=== PATIENT | female | born 1975 | race Two or more races ===

== ENCOUNTER 2019-12-17 13:14 | Emergency (ER) | payer BC ==
[~2019-12-17] VITALS: Ht 157.5 cm; Wt 48.6 kg
[2019-12-17] MEDS ORDERED: IV NORMAL SALINE 1000ML BAG 1,000 ML IV SCH (14:11)
[2019-12-17] MEDS ORDERED: ASPIRIN CHEWABLE 81 MG TABLET. PO ONE (14:15)
[2019-12-17] MEDS ORDERED: ASPIRIN 325 MG TABLET ONE (14:18)
--- NOTE | 2019-12-17 14:19 | PHYS DOC ---
Past Medical History Past Medical History: Fibromyalgia, High Cholesterol, Migraines Past Surgical History: No Surgical History Smoking Status: Never Smoker Alcohol Use: None Drug Use: None Adult General Chief Complaint Chief Complaint: CHEST PAIN-NON CARDIAC NATURE HPI HPI Patient is a 44 year old female who presents with complaint of left-sided chest discomfort that started a few days ago. Patient states the pain is sharp and stabbing in nature and states that it is worsened with deep breathing. She states that she regularly does cardio type exercising and has no worsening of symptoms with exercise. She denies any nausea, vomiting or diaphoresis. Patient denies any cough or shortness of breath. She does indicate that pain is slightly reproducible with palpation. Patient has had no fever.[] Review of Systems Review of Systems Constitutional: Denies fever or chills [] Respiratory: Denies cough or shortness of breath [] Cardiovascular: No additional information not addressed in HPI [] GI: Denies abdominal pain, nausea, vomiting or diarrhea [] Neurologic: Denies headache, focal weakness or sensory changes [] All other systems were reviewed and found to be within normal limits, except as documented in this note. Current Medications Current Medications Current Medications Medications (Trade) Dose Ordered Sig/Dionne Start Time Stop Time Status Last Admin Dose Admin Aspirin (Wanda Aspirin) 325 mg STK-MED ONCE 12/17/19 14:18 12/17/19 14:18 DC Aspirin (Children'S Aspirin) 324 mg 1X ONCE 12/17/19 14:15 12/17/19 14:18 DC 12/17/19 14:45 324 MG Magnesium Oxide (Magnesium Oxide) 400 mg DAILY 12/18/19 09:00 UNV Sodium Chloride 1,000 ml @ 1,000 mls/hr Q1H 12/17/19 14:11 12/17/19 15:10 DC 12/17/19 14:15 1,000 MLS/HR Allergies Allergies Allergies Coded Allergies Type Severity Reaction Last Updated Verified No Known Drug Allergies 01/30/14 No Physical Exam Physical Exam Constitutional: Well developed, well nourished, no acute distress, non-toxic appearance. [] HENT: Normocephalic, atraumatic, bilateral external ears normal, oropharynx moist, no oral exudates, nose normal. [] Eyes: PERRLA, EOMI, conjunctiva normal, no discharge. [] Neck: Normal range of motion, no tenderness, supple. [] Cardiovascular: Regular rate and rhythm[] Lungs & Thorax: Bilateral breath sounds clear to auscultation [] Abdomen: Bowel sounds normal, soft, no tenderness. [] Skin: Warm, dry, no erythema, no rash. [] Extremities: No tenderness, no cyanosis, no clubbing, ROM intact, no edema. [] Neurologic: Alert and oriented X 3, no focal deficits noted. [] Current Patient Data Vital Signs Vital Signs Date Time Temp Pulse Resp B/P (MAP) Pulse Ox O2 Delivery O2 Flow Rate FiO2 12/17/19 13:58 98.1 86 16 112/62 (79) 96 Room Air 98.1 Lab Values Laboratory Tests Test 12/17/19 14:30 White Blood Count 2.8 x10^3/uL (4.0-11.0) L Red Blood Count 4.48 x10^6/uL (3.50-5.40) Hemoglobin 13.9 g/dL (12.0-15.5) Hematocrit 41.7 % (36.0-47.0) Mean Corpuscular Volume 93 fL (79-100) Mean Corpuscular Hemoglobin 31 pg (25-35) Mean Corpuscular Hemoglobin Concent 33 g/dL (31-37) Red Cell Distribution Width 15.5 % (11.5-14.5) H Platelet Count 114 x10^3/uL (140-400) L Neutrophils (%) (Auto) 66 % (31-73) Lymphocytes (%) (Auto) 27 % (24-48) Monocytes (%) (Auto) 5 % (0-9) Eosinophils (%) (Auto) 1 % (0-3) Basophils (%) (Auto) 1 % (0-3) Neutrophils # (Auto) 1.9 x10^3/uL (1.8-7.7) Lymphocytes # (Auto) 0.8 x10^3/uL (1.0-4.8) L Monocytes # (Auto) 0.1 x10^3/uL (0.0-1.1) Eosinophils # (Auto) 0.0 x10^3/uL (0.0-0.7) Basophils # (Auto) 0.0 x10^3/uL (0.0-0.2) D-Dimer (Harper) 0.39 ug/mlFEU (0.00-0.50) Sodium Level 141 mmol/L (136-145) Potassium Level 4.1 mmol/L (3.5-5.1) Chloride Level 105 mmol/L (98-107) Carbon Dioxide Level 29 mmol/L (21-32) Anion Gap 7 (6-14) Blood Urea Nitrogen 4 mg/dL (7-20) L Creatinine 0.5 mg/dL (0.6-1.0) L Estimated GFR (Cockcroft-Gault) 133.4 BUN/Creatinine Ratio 8 (6-20) Glucose Level 98 mg/dL (70-99) Calcium Level 9.0 mg/dL (8.5-10.1) Magnesium Level 1.6 mg/dL (1.8-2.4) L Total Bilirubin 0.3 mg/dL (0.2-1.0) Aspartate Amino Transferase (AST) 27 U/L (15-37) Alanine Aminotransferase (ALT) 44 U/L (14-59) Alkaline Phosphatase 106 U/L (46-116) Troponin I Quantitative < 0.017 ng/mL (0.000-0.055) WG-Era-O-Type Natriuretic Peptide 66 pg/mL (0-124) Total Protein 6.6 g/dL (6.4-8.2) Albumin 3.6 g/dL (3.4-5.0) Albumin/Globulin Ratio 1.2 (1.0-1.7) Laboratory Tests 12/17/19 14:30 Laboratory Tests 12/17/19 14:30 EKG EKG EKG demonstrates normal sinus rhythm with rate of 75.[] Radiology/Procedures Radiology/Procedures [] Impressions: PROCEDURE: PORTABLE CHEST 1V INDICATION: Chest pain COMPARISON: None. FINDINGS: Single view of chest obtained. No focal airspace consolidation. Cardiomediastinal contour unremarkable. No acute osseous abnormality. IMPRESSION: * No focal airspace consolidation or edema. Electronically signed by: Ronnie Justin MD (12/17/2019 2:26 PM) [id number] Course & Med Decision Making Course & Med Decision Making Pertinent Labs and Imaging studies reviewed. (See chart for details) [] Dragon Disclaimer Dragon Disclaimer This electronic medical record was generated, in whole or in part, using a voice recognition dictation system. Departure Departure Impression: Primary Impression: Chest wall pain Disposition: 01 HOME, SELF-CARE Condition: STABLE Referrals: TANIA QUINN MD (PCP) Patient Instructions: Chest Wall Pain Scripts Diclofenac Sodium (DICLOFENAC SODIUM) 50 Mg Tablet. 1 TAB PO BID PRN for PAIN, #20 TAB Prov: AVA HUNTER Jr. DO 12/17/19 AVA HUNTER Jr. DO Dec 17, 2019 14:19
--- NOTE | 2019-12-17 14:22 | EKG ---
[facility] [address] [place] [address] Test Date: 2019-12-17 Test Time: 13:40:12 Pat Name: JOHNNY MONTES DE OCA Department: Room: Gender: F [employer] Supervisor: : [id number] Requested By: AVA HUNTER Order Number: [id number] Reading MD: Measurements Intervals [place] Rate: 75 P: 51 RI: 124 QRS: 61 QRSD: 86 T: 34 QT: 400 QTc: 449 Interpretive Statements SINUS RHYTHM INCOMPLETE RIGHT BUNDLE BRANCH BLOCK NON SPECIFIC T ABNORMALITY BORDERLINE ECG No previous ECG available for comparison
--- NOTE | 2019-12-17 14:29 | RAD ---
INDICATION: Chest pain COMPARISON: None. FINDINGS: Single view of chest obtained. No focal airspace consolidation. Cardiomediastinal contour unremarkable. No acute osseous abnormality. IMPRESSION: * No focal airspace consolidation or edema. Electronically signed by: Ronnie Justin MD (12/17/2019 2:26 PM) [id number]
[2019-12-17 14:48] LABS: BASO % 1 % (0-3); EOS % 1 % (0-3); HEMATOCRIT 41.7 % (36.0-47.0); HEMOGLOBIN 13.9 g/dL (12.0-15.5); LYMPH # 0.8 x10^3/uL (1.0-4.8); LYMPH % 27 % (24-48); MEAN CORPUSCULAR HEMOGLOBIN 31 pg (25-35); MEAN CORPUSCULAR HGB CONC 33 g/dL (31-37); MEAN CORPUSCULAR VOLUME 93 fL (79-100); MONO # 0.1 x10^3/uL (0.0-1.1); MONO % 5 % (0-9); NEUT # 1.9 x10^3/uL (1.8-7.7); NEUT % 66 % (31-73); PLATELET COUNT 114 x10^3/uL (140-400); RED BLOOD COUNT 4.48 x10^6/uL (3.50-5.40); RED CELL DISTRIBUTION WIDTH 15.5 % (11.5-14.5); WHITE BLOOD COUNT 2.8 x10^3/uL (4.0-11.0)
[2019-12-17 15:07] LABS: CREATININE 0.5 mg/dL (0.6-1.0); GFR 133.4; POTASSIUM 4.1 mmol/L (3.5-5.1)
[2019-12-17 15:12] LABS: ALBUMIN 3.6 g/dL (3.4-5.0); ALBUMIN/GLOBULIN RATIO 1.2 (1.0-1.7); MAGNESIUM 1.6 mg/dL (1.8-2.4); TOTAL BILIRUBIN 0.3 mg/dL (0.2-1.0); TOTAL PROTEIN 6.6 g/dL (6.4-8.2)
[2019-12-17] MEDS ORDERED: MAGNESIUM OXIDE 400 MG TABLET PO ONE (15:44)
[2019-12-17] MEDS ORDERED: DICL50TA4 PO (15:46)
[2019-12-17 16:00] VITALS: BP 109/70
== END 2019-12-17 16:29 | disposition home or self-care (01) ==
LOC: ER 13:14
DX: R07.89 Other chest pain (principal); E78.00 Pure hypercholesterolemia, unspecified; G43.909 Migraine, unspecified, not intractable, without status migrainosus
CPT/HCPCS: 36415; 71045; 80053; 83735; 83880; 84484; 85025; 85379; 93005; 99285; J7030